=== PATIENT | female | born 1995 | race Hispanic/Latino ===

== ENCOUNTER 2017-10-08 20:21 | Emergency (ER) | payer MEDICAID ==
[~2017-10-08 20:21] MED LIST: PREN-196 PO
[2017-10-08 20:56] LABS: APPEARANCE,URINE Clear (CLEAR); BILIRUBIN,URINE Negative (NEGATIVE); COLOR,URINE Yellow (YELLOW); GLUCOSE, URINE (UA) Negative (NEGATIVE); KETONES,URINE Trace mg/dL (NEGATIVE); LEUKOCYTE ESTERASE ,URINE Negative (NEGATIVE); NITRATE,URINE Negative (NEGATIVE); OCCULT BLOOD,URINE Negative (NEGATIVE); PH,URINE 6.5 (5.0-8.0); PROTEIN,URINE Negative (NEGATIVE)
[2017-10-08 21:04] LABS: HCG,QUAL RESULT NEGATIVE (NEGATIVE)
[2017-10-08] MEDS ORDERED: ACETAMINOPHEN-CODEINE 300/30MG TAB ONE (21:08)
== END 2017-10-08 22:13 | disposition home or self-care (01) ==
LOC: EDH 20:21
DX: R10.9 Unspecified abdominal pain (principal); M54.9 Dorsalgia, unspecified; Z88.6 Allergy status to analgesic agent
CPT/HCPCS: 81003; 81025

== ENCOUNTER 2017-12-09 03:55 | Emergency (ER) | payer MEDICAID ==
[2017-12-09] MEDS ORDERED: ONDANSETRON 4 MG TABLET ONE (04:16)
[2017-12-09] MEDS ORDERED: ACETAMINOPHEN EXTRA STRENGTH 500 MG TABLET ONE (04:17)
[2017-12-09 04:25] LABS: APPEARANCE,URINE Clear (CLEAR); BILIRUBIN,URINE Negative (NEGATIVE); COLOR,URINE Yellow (YELLOW); GLUCOSE, URINE (UA) Negative (NEGATIVE); KETONES,URINE Negative (NEGATIVE); LEUKOCYTE ESTERASE ,URINE Moderate (NEGATIVE); NITRATE,URINE Positive (NEGATIVE); OCCULT BLOOD,URINE Trace (NEGATIVE); PROTEIN,URINE Negative (NEGATIVE)
[2017-12-09 04:35] LABS: BASOPHILS % (AUTO) 0.5 % (0.0-5.0); EOSINOPHILS % (AUTO) 3.2 % (0.0-8.0); HEMATOCRIT 37.9 % (36-48); LYMPHOCYTES % (AUTO) 19.2 % (21.0-51.0); MEAN CORPUSCULAR HEMOGLOBIN 29.8 pg (27.0-33.0); MEAN CORPUSCULAR HGB CONC 35.3 g/dL (32.0-36.0); MEAN CORPUSCULAR VOLUME 84.5 fL (79-99); MONOCYTES % (AUTO) 7.3 % (3.0-13.0); NEUTROPHILS % (AUTO) 69.8 % (40.0-77.0); PLATELET COUNT (AUTO) 212 K/uL (130-400); RED BLOOD CELL COUNT(AUTO) 4.49 MIL/uL (4.00-5.50); RED CELL DISTRIBUTION WIDTH 13.9 % (11.0-15.5); WHITE BLOOD COUNT (AUTO) 9.6 K/uL (4.8-10.8)
[2017-12-09 04:38] LABS: BACTERIA,URINE Many /HPF (None Seen)
[2017-12-09 04:39] LABS: RBC,URINE 0-1 /HPF (0-1)
[2017-12-09 04:44] LABS: CREATININE 0.6 mg/dL (0.5-1.5); POTASSIUM 3.6 mmol/L (3.5-5.1)
[2017-12-09] MEDS ORDERED: CEFTRIAXONE SODIUM 1 GM ONE (05:48)
[2017-12-09] MEDS ORDERED: FENTANYL CITRATE PF 50 MCG/1 ML 2ML VIAL ONE (07:00)
[2017-12-09] MEDS ORDERED: ONDANSETRON HCL MDV 20ML 2 MG/ML VIAL ONE (07:01)
== END 2017-12-09 09:01 | disposition home or self-care (01) ==
LOC: EDH 03:55
DX: N30.00 Acute cystitis without hematuria (principal); Z72.0 Tobacco use; Z88.6 Allergy status to analgesic agent
CPT/HCPCS: 36415; 74176; 80048; 81001; 81025; 85025; 96374; 96375; 99285; J0696; J3010; Q0162

== ENCOUNTER 2018-01-11 18:19 | Emergency (ER) | payer MEDICAID | END 2018-01-11 19:15 | disposition home or self-care (01) | LOC: EDH 18:19 | DX: J20.9 Acute bronchitis, unspecified (principal); Z33.1 Pregnant state, incidental; Z88.6 Allergy status to analgesic agent; Z72.0 Tobacco use | CPT/HCPCS: 81025; 93005 ==

== ENCOUNTER 2018-02-17 12:16 | Observation (INO) | payer MEDICAID ==
[2018-02-17] VITALS (17 sets, daily range): BP systolic 125–138; BP diastolic 62–79
[2018-02-17 13:20] LABS: BASOPHILS % (AUTO) 0.9 % (0.0-5.0); EOSINOPHILS % (AUTO) 9.1 % (0.0-8.0); HEMATOCRIT 39.4 % (36-48); LYMPHOCYTES % (AUTO) 28.3 % (21.0-51.0); MEAN CORPUSCULAR HEMOGLOBIN 29.2 pg (27.0-33.0); MEAN CORPUSCULAR HGB CONC 34.6 g/dL (32.0-36.0); MEAN CORPUSCULAR VOLUME 84.3 fL (79-99); MONOCYTES % (AUTO) 4.4 % (3.0-13.0); NEUTROPHILS % (AUTO) 57.3 % (40.0-77.0); PLATELET COUNT (AUTO) 188 K/uL (130-400); RED BLOOD CELL COUNT(AUTO) 4.67 MIL/uL (4.00-5.50); RED CELL DISTRIBUTION WIDTH 13.8 % (11.0-15.5); WHITE BLOOD COUNT (AUTO) 7.7 K/uL (4.8-10.8)
[2018-02-17 13:24] LABS: APPEARANCE,URINE Clear (CLEAR); BILIRUBIN,URINE Negative (NEGATIVE); COLOR,URINE Yellow (YELLOW); GLUCOSE, URINE (UA) Negative (NEGATIVE); KETONES,URINE Negative (NEGATIVE); LEUKOCYTE ESTERASE ,URINE Trace (NEGATIVE); NITRATE,URINE Negative (NEGATIVE); OCCULT BLOOD,URINE Large (NEGATIVE); PH,URINE 8.5 (5.0-8.0); PROTEIN,URINE Trace (NEGATIVE)
[2018-02-17 13:31] LABS: HCG,QUAL RESULT POSITIVE (NEGATIVE)
[2018-02-17 13:44] LABS: CREATININE 0.5 mg/dL (0.5-1.5); POTASSIUM 3.5 mmol/L (3.5-5.1)
[2018-02-17 13:57] LABS: BACTERIA,URINE Rare /HPF (None Seen); SQUAMOUS EPITHELIAL CELL,UR Rare /HPF (0-2)
[2018-02-17] MEDS ORDERED: CEFAZOLIN SODIUM 1 GM VIAL IVP SCH (15:30)
[2018-02-17] MEDS ORDERED: MIDAZOLAM HCL 1 MG/ML 2ML VIAL ONE (16:16)
[2018-02-17] MEDS ORDERED: PROPOFOL 10 MG/ML 20ML VIAL IV ONE (16:17)
[2018-02-17] MEDS ORDERED: FENTANYL CITRATE PF 50 MCG/1 ML 2ML VIAL ONE ×3 (16:36→17:20)
[2018-02-17] MEDS ORDERED: BUPIVACAINE/PF 0.25% 30ML VIAL IJ ONE (16:44)
[2018-02-17] MEDS ORDERED: NEOSTIGMINE 5MG/5ML SYR IV ONE (16:54)
[2018-02-17] MEDS ORDERED: ONDANSETRON HCL 4 MG/2 ML VIAL ONE (16:54)
[2018-02-17] MEDS ORDERED: GLYCOPYRROLATE 0.2 MG/ML 5 ML VIAL ONE (16:54)
[2018-02-17] MEDS ORDERED: MEPERIDINE-PF 25 MG/ML SYG ONE (18:02)
[2018-02-17] MEDS ORDERED: ACETAMINOPHEN-CODEINE 300/30MG TAB PO PRN ×2 (19:30)
== END 2018-02-17 22:50 | disposition home or self-care (01) ==
LOC: EDH 12:16 → EDHIP 12:17 → WSH 18:40
PROVIDERS: ADMIT Obstetrics & Gynecology; ATTEND Obstetrics & Gynecology
DX: O00.90 Unspecified ectopic pregnancy without intrauterine pregnancy (principal); O99.52 Diseases of the respiratory system complicating childbirth; J45.909 Unspecified asthma, uncomplicated; Z3A.01 Less than 8 weeks gestation of pregnancy
CPT/HCPCS: 36415; 58661; 76801; 76817; 80048; 81001; 81025; 84702; 85025; 86850; 86900; 86901; 88305; 99285; A4344; A4351; A4649 ×2; C1769 ×2; G0168; G0378 ×11; J2175; J2250; J2405; J2704; J2710; J3010 ×3; J3490 ×2; J7030; J7120

== ENCOUNTER 2019-11-05 15:56 | Emergency (ER) | payer MEDICAID, OTHER ==
[2019-11-05 16:33] LABS: RAPID GROUP A STREP NEGATIVE (NEGATIVE)
== END 2019-11-05 17:26 | disposition home or self-care (01) ==
LOC: EDH 15:56
DX: J06.9 Acute upper respiratory infection, unspecified (principal); Z88.6 Allergy status to analgesic agent
CPT/HCPCS: 87804; 87880

== ENCOUNTER 2019-12-04 13:05 | Emergency (ER) | payer OTHER ==
[2019-12-04 13:34] LABS: BASOPHILS % (AUTO) 0.2 % (0.0-5.0); EOSINOPHILS % (AUTO) 1.6 % (0.0-8.0); HEMATOCRIT 38.9 % (36-48); LYMPHOCYTES % (AUTO) 15.7 % (21.0-51.0); MEAN CORPUSCULAR HEMOGLOBIN 27.4 pg (27.0-33.0); MEAN CORPUSCULAR HGB CONC 32.9 g/dL (32.0-36.0); MEAN CORPUSCULAR VOLUME 83.3 fL (79-99); MONOCYTES % (AUTO) 5.5 % (3.0-13.0); NEUTROPHILS % (AUTO) 76.8 % (40.0-77.0); PLATELET COUNT (AUTO) 213 K/uL (130-400); RED BLOOD CELL COUNT(AUTO) 4.67 MIL/uL (4.00-5.50); RED CELL DISTRIBUTION WIDTH 13.2 % (11.0-15.5); WHITE BLOOD COUNT (AUTO) 9.7 K/uL (4.8-10.8)
[2019-12-04 13:46] LABS: CARBON DIOXIDE 28 mmol/L (21-32); CHLORIDE 102 mmol/L (101-111); CREATININE 0.6 mg/dL (0.5-1.5); GLOMERULAR FILTR. RATE CALC 128 mL/min (>60); GLUCOSE,RANDOM 111 mg/dL (70-105); POTASSIUM 3.5 mmol/L (3.5-5.1); SODIUM SERUM 139 mmol/L (136-145); UREA NITROGEN, BLOOD 9 mg/dL (7-18)
[2019-12-04 13:48] LABS: INR 0.92 (0.85-1.15); PARTIAL THROMBOPLASTIN TIME 30.6 SEC (26.3-35.5); RAPID GROUP A STREP NEGATIVE (NEGATIVE)
[2019-12-04 13:59] LABS: ALANINE AMINOTRANSFERASE 45 U/L (12-78); ALBUMIN 3.7 g/dL (3.5-5.0); ASPARTATE AMINOTRANSFERASE 27 U/L (10-37); BILIRUBIN,TOTAL 0.4 mg/dL (0.2-1.0); CREATINE KINASE, TOTAL 92 U/L (21-232); MYOGLOBIN 27 ng/mL (10-92); TOTAL PROTEIN, SERUM 7.6 g/dL (6.0-8.3); TROPONIN I < 0.04 ng/mL (0.00-0.06)
[2019-12-04] MEDS ORDERED: ACETAMINOPHEN EXTRA STRENGTH 500 MG TABLET ONE (14:07)
[2019-12-04] MEDS ORDERED: SODIUM CHLORIDE 0.9% 1000ML 1,000 ML IV ONE (14:07)
[2019-12-04 14:19] LABS: APPEARANCE,URINE Clear (CLEAR); BILIRUBIN,URINE Negative (NEGATIVE); COLOR,URINE Dark Yellow (YELLOW); GLUCOSE, URINE (UA) Negative (NEGATIVE); KETONES,URINE Trace mg/dL (NEGATIVE); LEUKOCYTE ESTERASE ,URINE Trace (NEGATIVE); NITRATE,URINE Negative (NEGATIVE); OCCULT BLOOD,URINE Small (NEGATIVE); PROTEIN,URINE POS 2+ mg/dL (NEGATIVE)
[2019-12-04 14:44] LABS: BACTERIA,URINE Few /HPF (None Seen); MUCUS,URINE Moderate LPF (None Seen); SQUAMOUS EPITHELIAL CELL,UR Few /HPF (0-2)
[2019-12-04] MEDS ORDERED: IOHEXOL-350 50ML VIAL IV ONE (15:50)
[2019-12-04] MEDS ORDERED: CEFTRIAXONE SODIUM 1 GM ONE (16:37)
[2019-12-04] MEDS ORDERED: LEVOFLOXACIN 750 MG/D5W 150 ML 150 ML ONE (16:37)
[2019-12-04] MEDS ORDERED: SODIUM CHLORIDE 0.9% 50 ML IV ONE (16:37)
== END 2019-12-04 17:43 | disposition home or self-care (01) ==
LOC: EDH 13:05
DX: J18.1 Lobar pneumonia, unspecified organism (principal); Z88.6 Allergy status to analgesic agent; Z98.890 Other specified postprocedural states
CPT/HCPCS: 36415; 71045; 71260; 80053; 81001; 82550; 83605; 83874; 84145; 84484; 85025; 85610; 85730; 87040; 87088; 87804 ×2; 87880; 93005; 96365; 96375; 99285; J0696; J1956; J7030; Q9967

== ENCOUNTER 2021-05-01 11:00 | Emergency (ER) | payer OTHER ==
[~2021-05-01] VITALS: Ht 175.3 cm; Wt 83.0 kg
[2021-05-01 11:02] VITALS: BP 133/80
[2021-05-01] MEDS ORDERED: ACETAMINOPHEN 500 MG TABLET PO SCH (13:00)
[2021-05-01] MEDS ORDERED: ACET-2247 PO (13:05)
[2021-05-01 13:20] VITALS: BP 112/78
== END 2021-05-01 13:25 | disposition home or self-care (01) ==
LOC: EDH 11:00
DX: S50.12XA Contusion of left forearm, initial encounter (principal); Z88.6 Allergy status to analgesic agent; W23.0XXA Caught, crushed, jammed, or pinched between moving objects, initial encounter; Y93.89 Activity, other specified; Y92.89 Other specified places as the place of occurrence of the external cause; Y99.8 Other external cause status
CPT/HCPCS: 73090